=== PATIENT | female | born 1945 | race Two or more races ===

== ENCOUNTER 2020-05-09 17:19 | Emergency (ER) | payer MEDICARE ==
[~2020-05-09] VITALS: Ht 157.5 cm; Wt 72.6 kg
[2020-05-09 21:10] VITALS: BP 142/56
[2020-05-09] MEDS ORDERED: LIDOCAINE 1% HCL (LOCAL ANESTH.) INJ 20ML MDV ONE (21:15)
[2020-05-09] MEDS ORDERED: LIDOCAINE 1% HCL (LOCAL ANESTH.) INJ 20ML MDV ID ONE (21:15)
== END 2020-05-09 21:43 | disposition home or self-care (01) ==
LOC: ER 17:19
DX: N61.1 Abscess of the breast and nipple (principal); I10 Essential (primary) hypertension; Z88.0 Allergy status to penicillin
CPT/HCPCS: 10060; 99283; J2001

== ENCOUNTER 2025-02-23 22:32 | Emergency (ER) | payer MEDICARE, BC, OTHER ==
[~2025-02-23] VITALS: Ht 165.1 cm; Wt 76.3 kg
--- NOTE | 2025-02-23 23:25 | ECG ---
[facility] Test Date: 2025-02-23 Test Time: 23:23:48 Pat Name: MARITZA HEATH Department: ED Room: Gender: F Director Of Claims: sergo : 1945 Requested By: EMERGENCY EMERGENCY Order Number: [id number] Reading MD: Néstor Devlin Measurements Intervals [place] Rate: 63 P: 39 [place]: 188 QRS: -7 QRSD: 93 T: -22 QT: 449 QTc: 460 Interpretive Statements Sinus rhythm Consider anterior infarct Nonspecific T abnormalities, inferior leads Electronically Signed On 02-24-2025 18:25:45 PDT by Néstor Devlin Please click the below link to view image of tracing.
[2025-02-23 23:46] LABS: Potassium 4.2 mmol/L (3.5-5.1); Sodium 138 mmol/L (136-145)
[2025-02-23 23:47] LABS: Anion Gap 9 (5-15); Carbon Dioxide 21 mmol/L (20-31)
[2025-02-23 23:49] LABS: Hematocrit 28.9 % (36.0-46.0); Hemoglobin 10.1 g/dL (12.2-16.2); Mean Corpuscular Hemoglobin 31.5 pg (28.0-32.0); Mean Corpuscular Volume 90.5 fL (80.0-100.0); Nucleated Red Blood Cells % 0.8 %
[2025-02-23 23:52] LABS: Glucose 98 mg/dL (74-106)
[2025-02-23 23:53] LABS: BUN/Creatinine Ratio 32.0 (10.0-20.0)
[2025-02-23 23:56] LABS: Blood Urea Nitrogen 24 mg/dL (9-23); Calcium 8.2 mg/dL (8.7-10.4); Chloride 108 mmol/L (98-107)
--- NOTE | 2025-02-24 00:17 | ECG ---
[facility] Test Date: 2025-02-23 Test Time: 22:38:15 Pat Name: MARITZA HEATH Department: ED Room: Gender: F Animal Nutrition Consultant: HAYDER : 1945 Requested By: EMERGENCY EMERGENCY Order Number: [id number] Reading MD: Néstor Devlin Measurements Intervals [place] Rate: 68 P: 47 [place]: 182 QRS: -15 QRSD: 99 T: 48 QT: 431 QTc: 459 Interpretive Statements Sinus rhythm Borderline left axis deviation Nonspecific repol abnormality, lateral leads Electronically Signed On 02-24-2025 18:25:39 PDT by Néstor Devlin Please click the below link to view image of tracing.
--- NOTE | 2025-02-24 01:08 | ED.PDOC ---
History of Present Illness Chief Complaint: Chest Pain Primary Care Provider: ARMAND Allergies: Coded Allergies: Penicillins (Verified Allergy, Severe, 05/09/20) Mode of Arrival: Ambulatory Past Medical History PAST MEDICAL HISTORY: HTN Surgical History: Denies all surgeries SUPERINTENDENT OPERATING History: No Pertinent SUPERINTENDENT OPERATING History Family History Family History: Reviewed,noncontributory to illness, No family hx of Cancer, No family hx of DM, No family hx of Heart servando, No family hx of HTN, No family hx ofKidney servando, No family hx of Liver servando, No family hx of Lung servando, No family hx of Stroke Social History Smoker: Non-Smoker Alcohol: Denies ETOH Use Drugs: Denies Drug Use Lives In: Home X-Ray, Labs, Meds, VS Vital Signs Date Time Temp Pulse Resp B/P (MAP) Pulse Ox O2 Delivery O2 Flow Rate FiO2 02/24/25 03:01 97.8 66 14 90/60 (70) 95 97.8 02/24/25 01:32 68 02/23/25 23:23 63 02/23/25 22:51 98.3 68 16 146/51 95 98.3 02/23/25 22:38 68 Lab Test 02/24/25 02:30 02/24/25 01:30 02/23/25 22:43 Range/Units Troponin I High Sensitivity 13 14 11 </=34 ng/L White Blood Count 4.5 4.4-10.8 10^3/uL Red Blood Count 3.20 L 4.0-5.20 10^6/uL Hemoglobin 10.1 L 12.2-16.2 g/dL Hematocrit 28.9 L 36.0-46.0 % Mean Corpuscular Volume 90.5 80.0-100.0 fL Mean Corpuscular Hemoglobin 31.5 28.0-32.0 pg Mean Corpuscular Hemoglobin Concent 34.8 32.0-36.0 g/dL Red Cell Distribution Width 14.0 11.8-14.3 % Platelet Count 69 L 140-450 10^3/uL Mean Platelet Volume 9.4 6.9-10.8 fL Neutrophils (%) (Auto) 55.6 37.0-80.0 % Lymphocytes (%) (Auto) 27.6 10.0-50.0 % Monocytes (%) (Auto) 15.3 H 0.0-12.0 % Eosinophils (%) (Auto) 1.3 0.0-7.0 % Basophils (%) (Auto) 0.2 0.0-2.0 % Neutrophils # (Auto) 2.5 1.6-8.6 10 ^3/uL Lymphocytes # (Auto) 1.2 0.4-5.4 10 ^3/uL Monocytes # (Auto) 0.7 0-1.3 10 ^3/uL Eosinophils # (Auto) 0.1 0-0.8 10 ^3/uL Basophils # (Auto) 0 0-0.2 10 ^3/uL Nucleated Red Blood Cells 0.8 % Sodium Level 138 136-145 mmol/L Potassium Level 4.2 3.5-5.1 mmol/L Chloride Level 108 H 98-107 mmol/L Carbon Dioxide Level 21 20-31 mmol/L Anion Gap 9 5-15 Blood Urea Nitrogen 24 H 9-23 mg/dL Creatinine 0.75 0.550-1.02 mg/dL Glomerular Filtration Rate Calc 80 >90 mL/min BUN/Creatinine Ratio 32.0 H 10.0-20.0 Serum Glucose 98 74-106 mg/dL Calcium Level 8.2 L 8.7-10.4 mg/dL B-Type Natriuretic Peptide 268.03 0-100 pg/mL SEPSIS Sepsis Screen Date sepsis recognized/suspect: Feb 23, 2025 Time Sepsis recognized/suspect: 2257 Recent Procedure: Yes (CHEMO THERAPY INFUSION 02/19/25) On Antibiotic Therapy: No Respiratory Rate >20: No Heart Rate >90: No Temp<36 C (96.8 F) or >38.3 C: No SBP <90 or MAP <65 mmHG: No New Acute Mental Status Change: No Is the patient on CPAP, BIPAP,: No Physician Orders Urinalysis (02/23/25 22:42) Electrocardigram (02/24/25 01:43) Chest Xray 1 View (02/23/25 23:25) Vital Signs Q1HR (02/23/25 23:25) Troponin-I Hs (02/24/25 04:20) Vital Signs Date Time Temp Pulse Resp B/P (MAP) Pulse Ox O2 Delivery O2 Flow Rate FiO2 02/24/25 03:01 97.8 66 14 90/60 (70) 95 97.8 02/24/25 01:32 68 02/23/25 23:23 63 02/23/25 22:51 98.3 68 16 146/51 95 98.3 02/23/25 22:38 68 Laboratory Tests Test 02/23/25 22:43 White Blood Count 4.5 10^3/uL (4.4-10.8) I personally scribed for CAROL CHOUDHARY MD ([email or web address]) on 02/24/25 at 01:08. Electronically submitted by Claudio Grijalva ([email or web address]). I personally scribed for CAROL CHOUDHARY MD ([email or web address]) on 02/24/25 at 03:38. Electronically submitted by Claudio Grijalva ([email or web address]). CAROL CHOUDHARY MD Feb 24, 2025 01:08
--- NOTE | 2025-02-24 01:32 | ED.PDOC ---
History of Present Illness HPI Comments 79 y/o Emirati speaking F presents with daughter for c/c hypertension and chest pain. Per daughter, patient has been having symptoms, intermittently, since her last chemotherapy session for a liver tumors on February 21, 2025. Chest pain episodes are reported to have only occurred at the day of receiving chemotherapy and this evening, unprovoked at 1635. Systolic pressures reports being within the 200s range via home blood pressure monitoring devices. Patient states on compliancy with medication a new medication she was started on for her high bl ood pressure recently. Last or intake of high blood pressure medication was, this evening, prior to arrival. Since taking said medication patient reports on pain slightly improving. Only significant history of hypertension and vitiligo. Patient denies having any shortness of breath, does not, or further associated symptoms. REVIEW OF SYSTEMS: General: No fever, no chills, or fatigue HEENT: No sore throat, no earache, no congestion, no neck pain. Cardiac: Chest pain. Hypertension. No palpitations. Lungs: No shortness of breath, no cough. GI: No nausea, no vomiting, no diarrhea, no constipation, no abdominal pain : No dysuria, frequency, or urgency. No hematuria. Musculoskeletal: No joint pain , no joint swelling, no extremity edema. Skin: No rash, no itching. Neuro: No headache, no dizziness, no weakness PHYSICAL EXAM: General: Awake, alert and oriented. No acute distress. Skin: Skin in warm, dry and intact. Appropriate color for ethnicity with noted vitiligo changes. HEENT: The head is normocephalic and atraumatic. Conjunctivae are clear without exudates or hemorrhage. Sclera is non-icteric. EOM are intact. No signs of nystagmus. Eyelids are normal in appearance without swelling or lesions. Oral mucosa is pink and moist Neck: The neck is supple with normal range of motion. No JVD. Cardiac: Heart rate and rhythm are normal. No murmurs, gallops, or rubs are auscultated. Respiratory: No signs of respiratory distress. Lung sounds are clear in all lobes bilaterally without rales, rhonchi, or wheezes. Extremities: Mild bilateral ankle edema which is chronic Neurological: The patient is awake, alert and oriented to person, place, and time with normal speech. Speech is clear. There is no facial asymmetry. Chief Complaint: Chest Pain Time Seen by MD: 22:30 Primary Care Provider: ARMAND Marcelo Notes: Nurses Notes, Medications, Allergies Allergies: Coded Allergies: Penicillins (Verified Allergy, Severe, 05/09/20) Information Source: Patient, Relative (Child) Mode of Arrival: Ambulatory Severity: Moderate Timing: Hours Duration: Since onset Prehospital treatment: Other (See HPI) Past Medical History PAST MEDICAL HISTORY: Cancer (Liver tumors, on chemotherapy), HTN Surgical History: Denies all surgeries RESIDENTIAL WORKER History: No Pertinent RESIDENTIAL WORKER History Family History Family History: Reviewed,noncontributory to illness, No family hx of Cancer, No family hx of DM, No family hx of Heart servando, No family hx of HTN, No family hx ofKidney servando, No family hx of Liver servando, No family hx of Lung servando, No family hx of Stroke Social History Smoker: Non-Smoker Alcohol: Denies ETOH Use Drugs: Denies Drug Use Lives In: Home Was a procedure done? Was a procedure done?: No EKG EKG #1: Pulse Rate (adult): 63 [place]: Normal Cardiac Rhythm: NSR Block: None Hypertrophy: None ST: Normal Comments No STEMI EKG #2: Pulse Rate (adult): 68 [place]: Normal Cardiac Rhythm: NSR Block: None Hypertrophy: None ST: Normal Comments No STEMI Differential Dx Considerations may include: Differential diagnoses considered include acute ischemic coronary syndrome, aortic dissection, cardiac tamponade, mediastinitis, pulmonary embolus, pneumothorax, tension pneumothorax, esophageal rupture, coronary artery vasospasm, myocarditis, pericarditis, pneumonia, pulmonary edema, esophageal tear, pancreatitis, aortic stenosis, dilated cardiomyopathy, hypertrophic cardiomyopathy, mitral valve prolapse, malignancy, pleuritis, pneumomediastinum, primary pulmonary hypertension, cholecystitis, esophageal spasm, esophagus, gas tritis, GERD, peptic ulcer disease, costochondritis, fibromyalgia, rib fracture, herpes zoster, radicular syndromes, thoracic outlet syndrome, somatization. X-Ray, Labs, Meds, VS Vital Signs Date Time Temp Pulse Resp B/P (MAP) Pulse Ox O2 Delivery O2 Flow Rate FiO2 02/24/25 03:01 97.8 66 14 90/60 (70) 95 97.8 02/24/25 01:32 68 02/23/25 23:23 63 02/23/25 22:51 98.3 68 16 146/51 95 98.3 02/23/25 22:38 68 Lab Test 02/24/25 03:36 02/24/25 02:30 02/24/25 01:30 02/23/25 22:43 Range/Units Urine Color Light-yellow Yellow Urine Clarity Turbid H Clear Urine pH 6.0 5.0-9.0 Urine Specific [place] 1.010 1.001-1.035 Urine Protein 1+ H Negative Urine Ketones Negative Negative Urine Blood 1+ H Negative /uL Urine Nitrite Negative Negative Urine Bilirubin Negative Negative Urine Urobilinogen Normal Negative mg/dL Urine Leukocyte Esterase 3+ Negative /uL Urine Glucose Normal Normal mg/dL Troponin I High Sensitivity 13 14 11 </=34 ng/L White Blood Count 4.5 4.4-10.8 10^3/uL Red Blood Count 3.20 L 4.0-5.20 10^6/uL Hemoglobin 10.1 L 12.2-16.2 g/dL Hematocrit 28.9 L 36.0-46.0 % Mean Corpuscular Volume 90.5 80.0-100.0 fL Mean Corpuscular Hemoglobin 31.5 28.0-32.0 pg Mean Corpuscular Hemoglobin Concent 34.8 32.0-36.0 g/dL Red Cell Distribution Width 14.0 11.8-14.3 % Platelet Count 69 L 140-450 10^3/uL Mean Platelet Volume 9.4 6.9-10.8 fL Neutrophils (%) (Auto) 55.6 37.0-80.0 % Lymphocytes (%) (Auto) 27.6 10.0-50.0 % Monocytes (%) (Auto) 15.3 H 0.0-12.0 % Eosinophils (%) (Auto) 1.3 0.0-7.0 % Basophils (%) (Auto) 0.2 0.0-2.0 % Neutrophils # (Auto) 2.5 1.6-8.6 10 ^3/uL Lymphocytes # (Auto) 1.2 0.4-5.4 10 ^3/uL Monocytes # (Auto) 0.7 0-1.3 10 ^3/uL Eosinophils # (Auto) 0.1 0-0.8 10 ^3/uL Basophils # (Auto) 0 0-0.2 10 ^3/uL Nucleated Red Blood Cells 0.8 % Sodium Level 138 136-145 mmol/L Potassium Level 4.2 3.5-5.1 mmol/L Chloride Level 108 H 98-107 mmol/L Carbon Dioxide Level 21 20-31 mmol/L Anion Gap 9 5-15 Blood Urea Nitrogen 24 H 9-23 mg/dL Creatinine 0.75 0.550-1.02 mg/dL Glomerular Filtration Rate Calc 80 >90 mL/min BUN/Creatinine Ratio 32.0 H 10.0-20.0 Serum Glucose 98 74-106 mg/dL Calcium Level 8.2 L 8.7-10.4 mg/dL B-Type Natriuretic Peptide 268.03 0-100 pg/mL [place] [address] Ph: [phone] DIAGNOSTIC IMAGING Diagnostic Imaging Report : [id number] Signed PATIENT: MARITZA HEATH ACCT: [id number] UNIT: [id number] : 1945 LOC: ER ROOM / BED: / AGE / SEX: 79 / F ADM STATUS: REG ER SERVICE 24 ORDERING PHYSICIAN: CAROL CHOUDHARY MD PROCEDURE(s): CXR1 - CHEST XRAY 1 VIEW REASON: cp ORDER NUMBER(s): [id number], ACCESSION NUMBER(s): [id number] CHEST RADIOGRAPH Indication: cp Technique: Single frontal view of the chest was obtained COMPARISON: None FINDINGS: Lines and Tubes: None Lungs: Mild diffuse increased prominence of the pulmonary vasculature. No evidence of focal consolidation. Pleura: No effusion. No pneumothorax. Cardiomediastinal contours: Cardiomegaly Bones: Unremarkable IMPRESSION: 1. Cardiomegaly and mild diffuse increased prominence of the pulmonary vasculature. ATED BY: PERRY COLIN MD DICTATED DATE/TIME: 02/24/25401 SIGNED BY: PERRY COLIN MD SIGNED DATE/TIME: 02/24/25401 CC: Time of 1ST Reevaluation: 23:00 Reevaluation 1ST: Unchanged Patient Education/Counseling: Need For Follow Up Family Education/Counseling: Need For Follow Up SEPSIS Sepsis Screen Date sepsis recognized/suspect: Feb 23, 2025 Time Sepsis recognized/suspect: 2257 Recent Procedure: Yes (CHEMO THERAPY INFUSION 02/19/25) On Antibiotic Therapy: No Respiratory Rate >20: No Heart Rate >90: No Temp<36 C (96.8 F) or >38.3 C: No SBP <90 or MAP <65 mmHG: No New Acute Mental Status Change: No Is the patient on CPAP, BIPAP,: No Physician Orders Electrocardigram (02/24/25 01:43) Chest Xray 1 View (02/23/25 23:25) Vital Signs Q1HR (02/23/25 23:25) Troponin-I Hs (02/24/25 04:20) Urine Bacterial Culture (02/24/25 04:50) Vital Signs Date Time Temp Pulse Resp B/P (MAP) Pulse Ox O2 Delivery O2 Flow Rate FiO2 02/24/25 03:01 97.8 66 14 90/60 (70) 95 97.8 02/24/25 01:32 68 02/23/25 23:23 63 02/23/25 22:51 98.3 68 16 146/51 95 98.3 02/23/25 22:38 68 Laboratory Tests Test 02/23/25 22:43 White Blood Count 4.5 10^3/uL (4.4-10.8) Departure 1 Departure Time of Disposition: 03:37 Impression: Primary Impression: Chest pain Disposition: HOME / SELF CARE / HOMELESS Condition: Stable Additional Instructions: INSTRUCCIONES DE YANET DE Urgencias Instrucciones: Annmarie atentamente todas las instrucciones proporcionadas en hilda paquete. Aunque le hayan dado el yanet del Departamento de Emergencias, esto no significa que tenga un "certificado de buena angelina". Hoy no se baca realizado ningn diagnstico definitivo para jenna sntomas. Es posible que ests en proceso de desarrollar leonardo enfermedad grave. Es por eso que debe regresar al servicio de urgencias sin falta si presenta algn sntoma nuevo o que empeora (especialmente si jenna sntomas incluyen dolor en el pecho, dificultad para respirar, dolor abdominal, fiebre, dolor de monster, confusin, dificultad para ez o caminar). Tambin es muy importante que consulte a un mdico de atencin primaria dentro de los prximos 3 a 5 austin para realizar un seguimiento. Si no puede conseguir leonardo cornel, regrese al servicio de urgencias para leonardo nueva evaluacin. Dolor en el pecho: Instrucciones de cuidado Tabla de contenido Descripcin general Charger puedes cuidarte en casa? Cundo debes pedir ayuda? Crditos Descripcin general Hay muchas cosas que pueden causar dolor en el pecho. Algunas no son graves y mejoran por s solas en unos austin. Sin embargo, algunos tipos de dolor en el pecho requieren ms pruebas y tratamiento. Es posible que rowe mdico le haya recomendado leonardo visita de seguimiento en los prximos austin. Si no mejora, es posible que necesite ms pruebas o tratamiento. Aunque rowe mdico le haya dado de yanet, debe estar atento a cualquier problema. El mdico le realiz leonardo revisin exhaustiva, cass a veces pueden surgir problemas ms adelante. Si presenta sntomas nuevos o si estos no mejoran, busque atencin mdica de inmediato. Si tiene un dolor o presin en el pecho peor o diferente que dura ms de 5 minutos o si se desmay (perdi el conocimiento), llame al 911 o busque otra ayuda de emergencia de inmediato. Leonardo visita mdica es solo un paso en rowe tratamiento. Incluso si se siente mejor, debe seguir las recomendaciones de rowe mdico, bj asistir a todas las citas de seguimiento sugeridas y charan los medicamentos exactamente bj se le indique. [place] le ayudar a recuperarse y a prevenir problemas futuros. Charger puedes cuidarte en casa? Descansa hasta que te sientas mejor. [place] rowe medicamento exactamente bj se lo recetaron. Llame a rowe mdico si giuseppe que tiene algn problema con rowe medicamento. No conduzca despus de charan un analgsico recetado. Cundo debes pedir ayuda? Llame al si: Te desmayaste (perdiste el conocimiento). Tienes dificultad grave para respirar. Tiene sntomas de un ataque cardaco. Estos pueden incluir: Dolor o presin en el pecho, o leonardo sensacin extraa en el pecho. Transpiracin. Dificultad para respirar. Nuseas o vmitos. Dolor, presin o leonardo sensacin extraa en la espalda, el adrian, la mandbula o la parte superior del abdomen o en malena o ambos hombros o brazos. Mareo o debilidad repentina. Un ritmo cardaco rpido o irregular. Despus de llamar al , el operador podra indicarle que mastique leonardo aspirina para adultos o de 2 a 4 aspirinas de dosis baja. Espere la ambulancia. No intente conducir. Llame a rowe mdico ahora o busque atencin mdica inmediata si: Tienes alguna dificultad para respirar. Tiene un dolor en el pecho nuevo o diferente. Se siente mareado o aturdido o bj si se pudiera desmayar. Preste atencin de cerca a los cambios en rowe angelina y asegrese de comunicarse con rowe mdico si no mejora bj se esperaba. Crditos para el dolor de pecho: Instrucciones de cuidado Actualizado al: 2023 Autor: Personal de [address] Junta de revisin clnica Toda la educacin de [address] es revisada por un equipo que incluye mdicos, enfermeras, profesionales avanzados, dietistas registrados y otros profesionales de la angelina. Comments MDM: 81-year-old female with chest pain. EKG negative for signs of ischemia. High sensitivity troponin negative. CXR shows no acute process. Presentation not suggestive of acute coronary syndrome, pulmonary embolism or aortic dissection. Patient symptoms resolved during the ED observation. Patient has not been hypoxic, in respiratory distress or dyspneic during the ED observation. Patient able to ambulate without difficulty. Patient felt stable for discharge to follow up with PCP promptly. Patient advised to return to the ED with any new, worsening or concerning symptoms or inability to follow up with PCP. - I reviewed the following notes from the pt's past medical encounters: N/A The following tests were ordered, and results were reviewed by me: (See diagnostic results section) The following test were independently interpreted by me: EKG Additional information was gathered from interviewing the following independent historians: Patient's daughter at bedside I reviewed and agreed with the following test results read by other providers: Chest x-ray I discussed treatments and results with patient Decision regarding hospitalization or escalation of hospital level of care: Risks and benefits of admission for further treatment of patient's condition was considered however due to patient's stable condition patient will be discharged to follow up closely or return to care for worsening of condition or inability to follow up. Critical Care Note Critical Care Time?: No Stability Stability form required: No Heart Score Heart Score: Heart Score Response (Comments) Value History Slightly Suspicious 0 EKG Normal 0 Age >65 2 Risk Factors 1 or 2 risk factors 1 Troponin Normal limit 0 Total 3 I personally scribed for CAROL CHOUDHARY MD ([email or web address]) on 02/24/25 at 01:32. Electronically submitted by Claudio Grijalva ([email or web address]). I personally scribed for CAROL CHOUDHARY MD ([email or web address]) on 02/24/25 at 03:50. Electronically submitted by Claudio Grijalva ([email or web address]). I personally scribed for CAROL CHOUDHARY MD ([email or web address]) on 02/24/25 at 04:34. Electronically submitted by Claudio Grijalva ([email or web address]). CAROL CHOUDHARY MD Feb 24, 2025 01:32
[2025-02-24 03:01] VITALS: BP 90/60; PULSE 66; RESP 14; TEMP 97.8; O2SAT 95
--- NOTE | 2025-02-24 04:05 | DVH ---
CHEST RADIOGRAPH Indication: cp Technique: Single frontal view of the chest was obtained COMPARISON: None FINDINGS: Lines and Tubes: None Lungs: Mild diffuse increased prominence of the pulmonary vasculature. No evidence of focal consolida tion. Pleura: No effusion. No pneumothorax. Cardiomediastinal contours: Cardiomegaly Bones: Unremarkable IMPRESSION: 1. Cardiomegaly and mild diffuse increased prominence of the pulmonary vasculature.
[2025-02-24 04:44] LABS: Urine Protein, UAD 1+ (Negative)
--- NOTE | 2025-02-25 08:02 | ECG ---
[facility] Test Date: 2025-02-24 Test Time: 01:25:44 Pat Name: MARITAZ HEATH Department: [facility] ED Patient ID: [facility]-[id number] Room: Gender: F Sleeve Wheel Maker: sergo : 1945 Requested By: EMERGENCY EMERGENCY Order Number: [id number] Reading MD: Measurements Intervals [place] Rate: 62 P: 42 [place]: 190 QRS: -2 QRSD: 101 T: -19 QT: 452 QTc: 459 Interpretive Statements Sinus rhythm Nonspecific T abnormalities, inferior leads Please click the below link to view image of tracing.
== END 2025-02-24 06:42 | disposition home or self-care (01) ==
LOC: ER 22:32
DX: R07.89 Other chest pain (principal); I10 Essential (primary) hypertension; Z88.0 Allergy status to penicillin
CPT/HCPCS: 36415; 71045; 80048; 81003; 83880; 84484; 85025; 87086; 93005

== ENCOUNTER 2025-04-16 08:40 | Inpatient (IN) | payer MEDICARE, BC, OTHER ==
[~2025-04-16] VITALS: Ht 157.5 cm; Wt 72.4 kg
--- NOTE | 2025-04-16 09:26 | ED.PDOC ---
General HPI Comments HPI: This is a 79 year old female BIB daughter presenting to the ED with chief complaint of dysuria. Patient reports that she has been experiencing dysuria for the past 2 days with associated black stools with red streaks of blood since yesterday. Daughter relays patient has history of liver cancer with tumors noted to the stomach and lymph nodes, last chemotherapy session being 2 weeks ago. Daughter states patient is not on blood thinners. Patient denies any N/V/D, dizziness, fever, chills, or abdominal pain. Patient is oxygen dependent because chemotherapy causes her to have fluid retention. She is on Lasix. Initial Vitals BP: 146/63 HR: 93 Temp: 98F Past Medical History: HTN, Liver cancer Past Surgical History: Denies Social History: Denies ETOH, smoking, and drug use. Medications: Chemotherapy, Lasix, Udenyca, Lidocaine Allergies: Penicillins IVANA: Burning with urination for the last two days. Liver cancer with Mets. On chemotherapy. Tarry black stool with blood. No pain, on oxygen, on Lasix. HPI: Poor Historian. REVIEW OF SYSTEMS: CONSTITUTIONAL: Denies acute: fever, diaphoresis, chills, HEAD: Denies acute: headache, photophobia Eyes: Denies acute: Double vision, vision loss, eye pain, eye discharge. EARS: Denies acute: tinnitus, hearing loss, ear discharge, ear pain, THROAT: Denies acute: sore throat, swelling, difficulty swallowing , pain with swallowing, change in voice. NECK: Denies acute: neck pain, neck swelling, stiff neck. HEART: Denies acute : chest pain, palpitations, LUNGS: Denies acute: SOB, wheezing, cough, hemoptysis ABDOMEN: Denies acute: abdominal pain, Nausea, Vomiting, diarrhea, , hematemesis, SKIN: Denies acute: rash, redness, lesions, itchiness. EXTREMITIES: Denies acute: calf pain, numbness, tingling, weakness, denies pain in extremity. Denies acute: Low back pain. Neuro: Denies acute: focal neurological deficit, motor or sensory focal neurological deficit, tremors, seizure like activity, confusion, dizziness, change in mental status, loss of bowel or bladder function, cauda equina like symptoms. : Denies acute: , hematuria, flank pain, increase in urinary frequency. PSYCH: Denies acute: hallucination, suicidal ideation, homicidal ideation. FEMALE: Denies acute: abnormal vaginal bleeding, foul odor, unusual discharge. PHYSICAL EXAM: General: ----mild----acute distress, awake and alert. Head: normocephalic, atraumatic. Neck: supple, trachea is midline, no swelling. Throat: Normal phonation. Eyes:, no erythema, no purulent discharge, no proptosis, no icterus. Heart: regular rate, regular rhythm, no significant murmur appreciated. Lungs: no apparent respiratory distress, Able to speak in full sentences. No wheezing, no rhonchi, no crackles. No stridors Clear to auscultation bilaterally. Abdomen: non tender to palpation, non distended, soft, no guarding, no rebound, + bowel sounds. Neuro: Awake, Alert, oriented to name, self, situation, follows commands GCS=15. Speech is normal. Skin: no petechia, no purpura, no cyanosis, non-pale, not jaundice. Lower extremities: --trace- Pitting edema no deformity, no focal swelling, no calf TTP. Makes eye contact. moves all four extremities. Face: no apparent facial droop. Ambulating in the ED with a walker. ED COURSE: DISCLAIMER: This medical document was created using an electronic medical record system with voice recognition software and computerized dictation system. Although this document has been carefully reviewed, there might still be some phonetic and typographical errors. Occasional wrong-word or "sound-alike" substitutions may have occurred due to the inherent limitations of voice recognition software. These areas are purely typographical due to imperfections of the software programs and do not reflect any compromise in the patient's medical care. Please read the chart carefully and recognize, using context, where these substitutions have occurred. Chief Complaint: Urinary Time Seen by MD: 09:07 Primary Care Provider: ARMAND Reviewed notes: Medications, Allergies Allergies: Coded Allergies: Penicillins (Verified Allergy, Severe, 05/09/20) Home Meds Reported Medications Rosuvastatin Calcium (Rosuvastatin Calcium) 10 Mg Tab, 10 MG PO DAILY, TAB 04/17/25 Pantoprazole Sodium Sesquihydr (Protonix) 40 Mg Tab, 40 MG PO DAILY, #30 TAB 04/17/25 Metoprolol Tartrate (Lopressor) 50 Mg Tab, 1 TAB PO DAILY, #60 TAB 5 Refills 04/17/25 Albuterol Sulfate (VENTOLIN MDI) 90 Mcg Ih, 90 MCG IN, INH 04/17/25 Nifedipine (Nifedipine Er) 90 Mg Tab, 1 TAB PO DAILY, #30 TAB 5 Refills 04/17/25 Hydralazine Hcl (Hydralazine Hcl) 50 Mg Tab, 1 TAB PO TID, #90 TAB 5 Refills 04/17/25 Information Source: Patient Mode of Arrival: Ambulatory Was a procedure done? Was a procedure done?: No EKG EKG : Pulse Rate (adult): 73 Cardiac Rhythm: NSR Differential Diagnosis Kidney stone (Female): N/A Urinary Problem (Female): PID, Pyelonephritis, Urinary retention, Urolithiasis, UTI, Other (As far as rectal bleeding: Diverticulitis, colitis, fistula, neoplasm, hemorrhoids, anal fissures, constipation, Crohn's disease, ulcerative colitis) X-Ray, Labs, Meds, VS Vital Signs Date Time Temp Pulse Resp B/P (MAP) Pulse Ox O2 Delivery O2 Flow Rate FiO2 04/16/25 14:18 97.1 63 18 132/52 (78) 98 97.1 04/16/25 09:27 73 04/16/25 09:02 73 04/16/25 08:51 98.0 93 74 146/63 16 98.0 Lab Test 04/16/25 14:49 04/16/25 12:56 04/16/25 11:01 Range/Units Urine Color Colorless Yellow Urine Clarity Turbid H Clear Urine pH 6.0 5.0-9.0 Urine Specific [place] 1.010 1.001-1.035 Urine Protein 2+ H Negative Urine Ketones Negative Negative Urine Blood 1+ H Negative /uL Urine Nitrite Negative Negative Urine Bilirubin Negative Negative Urine Urobilinogen Normal Negative mg/dL Urine Leukocyte Esterase 3+ Negative /uL Urine RBC 3 0 - 4 /hpf Urine WBC Clumps Present None Seen /hpf Urine Microscopic WBC 184 H 0-5 /HPF Urine Squamous Epithelial Cells Few <5 /hpf Urine Bacteria Mod H None Seen /hpf Urine Mucus Few None Seen Urine Osmolality 248 mOsm/kg Urine Creatinine 87.50 30.0-125.0 mg/dL Urine Protein/Creatinine Ratio 1.84 Urine Sodium 14 L 40-220 mmol/L Urine Glucose Normal Normal mg/dL Urine Total Protein 161.0 H 1-14 mg/dL Prothrombin Time 11.7 9.3-11.8 sec Prothrombin Time INR 1.12 0.9-1.15 Activated Partial Thromboplast Time 24.5 24.5-34.5 SEC Iron Level 132 50-170 ug/dL Total Iron Binding Capacity 319 250-425 ug/dL Percent Iron Saturation 41.4 15-50 % Ferritin 353.9 H 10-291 ng/mL White Blood Count 21.6 H 4.4-10.8 10^3/uL Red Blood Count 2.89 L 4.0-5.20 10^6/uL Hemoglobin 9.4 L 12.2-16.2 g/dL Hematocrit 27.9 L 36.0-46.0 % Mean Corpuscular Volume 96.7 80.0-100.0 fL Mean Corpuscular Hemoglobin 32.4 H 28.0-32.0 pg Mean Corpuscular Hemoglobin Concent 33.5 32.0-36.0 g/dL Red Cell Distribution Width 20.5 H 11.8-14.3 % Platelet Count 73 L 140-450 10^3/uL Mean Platelet Volume 9.7 6.9-10.8 fL Neutrophils (%) (Auto) 37.0-80.0 % Lymphocytes (%) (Auto) 10.0-50.0 % Monocytes (%) (Auto) 0.0-12.0 % Basophils (%) (Auto) 0.0-2.0 % Neutrophils # (Auto) 1.6-8.6 10 ^3/uL Lymphocytes # (Auto) 0.4-5.4 10 ^3/uL Monocytes # (Auto) 0-1.3 10 ^3/uL Differential Total Cells Counted 100.0 100 Neutrophils % (Manual) 77 37.0-80.0 Band Neutrophils % (Manual) 6 Lymphocytes % (Manual) 6 L 10.0-50.0 Monocytes % (Manual) 10 0-12 Eosinophils % (Manual) 0 0-7 Basophils % (Manual) 0 0.0-2.0 Metamyelocytes % (manual) 0 Myelocytes % (Manual) 1 Promyelocytes % (Manual) 0 Blast Cells % (Manual) 0 Reactive Lymphocytes 0 Smudge Cells 2 /100 WBC Platelet Estimate Decreased Large Platelets Few Anisocytosis (manual) Slight Schistocytes Few Sodium Level 132 L 136-145 mmol/L Potassium Level 4.3 3.5-5.1 mmol/L Chloride Level 103 98-107 mmol/L Carbon Dioxide Level 21 20-31 mmol/L Anion Gap 8 5-15 Blood Urea Nitrogen 40 H 9-23 mg/dL Creatinine 1.73 H 0.550-1.02 mg/dL Glomerular Filtration Rate Calc 29 >90 mL/min BUN/Creatinine Ratio 23.1 H 10.0-20.0 Serum Glucose 119 H 74-106 mg/dL Lactic Acid Level 1.2 0.4-2.0 mmol/L Calcium Level 8.8 8.7-10.4 mg/dL Total Bilirubin 0.8 0.2-1.0 mg/dL Aspartate Amino Transferase (AST) 69 H 13-40 U/L Alanine Aminotransferase (ALT) 36 7-40 U/L Alkaline Phosphatase 179 H 46-116 U/L Troponin I High Sensitivity 11 </=34 ng/L B-Type Natriuretic Peptide 194.57 0-100 pg/mL Total Protein 6.9 5.7-8.2 g/dL Albumin 3.5 3.2-4.8 g/dL Microbiology Date/Time Source Procedure Growth Status 04/16/25 14:49 Voided Urine Urine Culture - Final Escherichia coli Escherichia coli#2 Complete 04/16/25 12:56 Blood Blood Culture - Preliminary NO GROWTH AFTER 24 HOURS OF INCUBATION. Resulted 04/16/25 12:40 Blood Blood Culture - Preliminary NO GROWTH AFTER 24 HOURS OF INCUBATION. Resulted Time of 1ST Reevaluation: 10:06 Reevaluation 1ST: Unchanged Patient Education/Counseling: Diagnosis, Treatment Family Education/Counseling: No Family Present Comments MDM: patient presented with the above HPI.---urinary symptoms and rectal bleeding---workup was initiated. patient was found with the above mentioned nic gnosis. the following medications were ordered: please refer to order lists of meds and tests obtained by myself Dr. Moran. Patient ED course and VS have been stabilized. Patient has been reassessed in the ED and remained in a stable condition. Pertinent incidental findings were discussed with the patient and/or family. Patient/family voices understanding and is agreeable with plan. Patient has been observed in the ED adequate length of time to insure improvement/stability. Escalation of care considered: Consideration of escalation to observation or admission Patient was found with a UTI and colitis. Antibiotics initiated. Patient was ADMITTED to the medicine team for further evaluation and treatment of their presentation. All the reports of any imaging studies that were ordered by myself were reviewed by myself. Departure 1 Departure Time of Disposition: 12:12 Impression: Primary Impression: Dysuria Additional Impressions: Rectal bleed Leukocytosis Anemia Colitis Disposition: ADMITTED INPATIENT Admit to: Tele Condition: Guarded Discharged With: Self, Relative Critical Care Note Critical Care Time?: Yes (35 min-critical care time only) I personally scribed for TERE MORAN DO ([email or web address]) on 04/16/25 at 09:26. Electronically submitted by Patrick Morataya ([email or web address]). I personally scribed for TERE MORAN DO ([email or web address]) on 04/16/25 at 09:27. Electronically submitted by Patrick Morataya ([email or web address]). I personally scribed for TERE MORAN DO ([email or web address]) on 04/16/25 at 17:33. Electronically submitted by Patrick Morataya ([email or web address]). TERE MORAN DO Apr 16, 2025 09:26
[2025-04-16 11:30] LABS: Hematocrit 27.9 % (36.0-46.0); Hemoglobin 9.4 g/dL (12.2-16.2); Mean Corpuscular Hemoglobin 32.4 pg (28.0-32.0); Mean Corpuscular Volume 96.7 fL (80.0-100.0)
[2025-04-16 11:46] LABS: Alanine Aminotransferase 36 U/L (7-40); Albumin 3.5 g/dL (3.2-4.8); Anion Gap 8 (5-15); BUN/Creatinine Ratio 23.1 (10.0-20.0); Calcium 8.8 mg/dL (8.7-10.4); Carbon Dioxide 21 mmol/L (20-31); Chloride 103 mmol/L (98-107); Potassium 4.3 mmol/L (3.5-5.1); Total Protein 6.9 g/dL (5.7-8.2)
[2025-04-16 11:47] LABS: Alkaline Phosphatase 179 U/L (46-116); Bilirubin, Total 0.8 mg/dL (0.2-1.0); Blood Urea Nitrogen 40 mg/dL (9-23); Glucose 119 mg/dL (74-106); Sodium 132 mmol/L (136-145)
--- NOTE | 2025-04-16 12:13 | DVH ---
Exam: CT CT AB PEL WO CON-NO ORAL OR IV History: rectal bleed Comparison Study: None Technique: Multidetector spiral CT of the abdomen was performed from lung bases to pubic symphysis. Imaging was performed without IV contrast. Axial, coronal and sagittal multiplanar reformats were ob tained from the axial data set by the technologist. Radiation Dose : 1. Abdomen/Pelvis: CTDIvol 7.99 mGy, DLP 465 mGy*cm. Findings: Evaluation of solid organs is limited due to lack of intravenous contrast use. Lung Bases: No acute or significant lung base finding. Normal heart size. No pleural or pericardial effusion. Liver: The liver is normal in size. No focal lesions. Gallbladder and Biliary Tree: Unremarkable Spleen: Unremarkable Pancreas: The pancreas is grossly normal in appearance. Adrenal Glands: Unremarkable Kidneys: Kidneys are grossly normal without calculi or hydronephrosis. Bladder: Grossly unremarkable for degree of distention. Bowel: The stomach is grossly normal in appearance. Concentric wall thickening throughout the colon m ay reflect mild colitis. The appendix is not visualized; however, no secondary findings of acute bijal endicitis identified. Ascites: Trace pelvic ascites. Lymphadenopathy: No mesenteric, retroperitoneal or periportal lymphadenopathy. Abdominal Wall and Mesentery: Unremarkable. Vasculature: The visualized abdominal aorta is normal in size and caliber. Evaluation of abdominal a nd pelvic vessels is limited due to lack of intravenous contrast. Pelvic Organs: Unremarkable Musculoskeletal: No aggressive focal bony lesions, acute fractures or dislocation. IMPRESSION: 1. Concentric wall thickening throughout the colon may reflect mild colitis. 2. Trace pelvic ascites. Radiation optimization: All CT scans at this facility use at least one of these dose optimization alethea hniques: automated exposure control mA and/or kV adjustment per patient size (includes targeted exam s where dose is matched to clinical indication) or iterative reconstruction.
[2025-04-16] MEDS: levoFLOXacin 500 MG TAB PO ONE (12:20)
[2025-04-16] MEDS: PANTOPRAZOLE 40 MG/10 ML VIAL INJ IV ONE (12:21)
[2025-04-16 12:35] LABS: Anisocytosis Slight; Smudge Cells 2 /100 WBC; Total Cells Counted 100.0 (100)
--- NOTE | 2025-04-16 14:02 | ECG ---
[facility] Test Date: 2025-04-16 Test Time: 09:02:42 Pat Name: MARITZA HEATH Department: Room: 0281T Gender: F Awning Maker: AKASH : [id number] Requested By: TERE BARNARD Order Number: [id number] Reading MD: Néstor Devlin Measurements Intervals [place] Rate: 73 P: 55 KS: 193 QRS: -14 QRSD: 104 T: 41 QT: 421 QTc: 464 Interpretive Statements Sinus rhythm Low voltage, precordial leads Abnormal R-wave progression, late transition Electronically Signed On 04-17-2025 22:16:20 PDT by Néstor Devlin Please click the below link to view image of tracing.
[2025-04-16 15:02] LABS: Urine Protein, UAD 2+ (Negative); Urine WBC Clumps PRESENT /hpf (None Seen)
--- NOTE | 2025-04-16 15:35 | DVHHPRES ---
History of Present Illness Resident Creating Document: JOSE ROSA RESIDENT Reason for Visit: Dysuria History of Present Illness This is an 79-year-old female who was brought in by her daughter to the ED with chief complain of dysuria. PMH: Hypertension, liver cancer (started chemotherapy on January 2025, last chemo was two weeks ago, oncologist is from [facility].) Dyslipidemia, PSH: Denies FH: Noncontributory SH: Denies alcohol, smoking or drug use. Patient states that for the last two days she has been experiencing worsening dysuria, urinary urgency, urinary frequency and foul odor urine. Which has been associated with chills, back pain, mild lower quadrant abdominal pain. She also mentions having stools with red streaks of blood since yesterday, denies any black stool. She also denies any significant chest pain, shortness of breath, fevers. She stated that her grandchildren has been sick with the flu the last couple of weeks. She also describes having nausea vomiting which are the usual for her chemotherapy. She also states been getting leg swelling for last couple of weeks. On arrival to the ED, patient was started on broad-spectrum antibiotics with Levaquin, she will also given Protonix, a CT abdomen revealed concentric wall thickening of the colon, trace pelvic ascites, mild transaminitis, normal lactic acid, elevated creatinine and BUN, thrombocytopenia, moderate anemia, leukocytosis, UA revealed UTI. On my initial assessment, patient was seen and examined at ER hallway. Granddaughter was present. Patient stated having described urinary symptoms, leg swelling however she denied any other current symptoms. She was on supplemental oxygen through nasal cannula at 2 L. Review of Systems Constitutional: Yes: Chills; No: Fever, Sweats, Weakness, Malaise, Other Eyes: No: Pain, Vision change, Conjunctivae inflammation, Eyelid inflammation, Other, Redness ENT: No: Ear pain, Ear discharge, Nose pain, Nose discharge, Nose congestion, Mouth pain, Mouth swelling, Throat pain, Throat swelling, Other Respiratory: No: Cough, Dry, Shortness of breath, SOB with excertion, Wheezing, Hemoptysis, Pleuritic Pain, Sputum, Wheezing, Other Cardiovascular: No: Chest Pain, Palpitations, Orthopnea, Paroxysmal Noc. Dyspnea, Edema, Lt Headedness, Other Gastrointestinal: Nausea, Vomiting, Hematochezia; No: Abdominal Pain, Diarrhea, Constipation, Melena, Other Genitourinary: Dysuria, Frequency; No Incontinence, No Hematuria, No Retention, No Other Musculoskeletal: No: other, neck pain, shoulder pain, arm pain, back pain, hand pain, leg pain, foot pain Skin: Lesions; No: Rash, Jaundice, Bruising, Other Neurological: No: Weakness, Numbness, Incoordination, Change in speech, Confusion, Seizures, Other Allergies: Coded Allergies: Penicillins (Verified Allergy, Severe, 05/09/20) Medications Current Medications Medications Dose Ordered Sig/Ivan Route Start Time Stop Time Status Last Admin Dose Admin Ondansetron HCl 4 mg Q4HP PRN IV 04/16/25 15:00 UNV Morphine Sulfate 1 mg Q6HP PRN IV 04/16/25 15:00 UNV Levofloxacin/ Dextrose 100 ml @ 100 mls/hr Q48H IV 04/17/25 10:00 UNV Pantoprazole Sodium 40 mg DAILY IV 04/17/25 10:00 UNV Hydralazine HCl 10 mg Q6HP PRN IV 04/16/25 15:30 UNV Albuterol 2.5 mg Q6HWA NEB 04/16/25 18:00 UNV Ipratropium [place] 0.5 mg Q6HWA NEB 04/16/25 18:00 UNV Exam Vital Signs Vital Signs Date Time Temp Pulse Resp B/P (MAP) Pulse Ox O2 Delivery O2 Flow Rate FiO2 04/16/25 14:18 97.1 63 18 132/52 (78) 98 97.1 Exam Physical examination as below: General: Awake, alert, in no acute distress. On supplemental oxygen nasal cannula HEENT: Head is normocephalic and atraumatic. Pupils are equal, round, and reacti ve to light. Extraocular muscles are intact. No nasal discharge. No facial trauma. Intraoral exam shows moist mucous membranes with no tonsillar enlargement or exudate. Neck: Supple with no cervical lymphadenopathy. Heart: Regular rate without murmur, rub, or gallop. Mild JVD distention Lungs: Mild bilateral crackles more prominent on left side Abdomen: No external sign of injury. Bowel sounds are present. Abdomen is soft, nontender. No rebound, no guarding, no rigidity. There are no palpable masses. There is no flank pain on exam. No CVA tenderness. Extremities: Strong peripheral pulses. There is no clubbing, no cyanosis. Plus one pitting edema in lower legs. Skin: Scattered whole-body patchy erythematous lesions on extremities and face, Neurologic: Cranial nerves II-XII intact without motor, sensory, or cerebellar deficit, no asterixis. Labs/Xrays Labs Test 04/16/25 14:49 04/16/25 11:01 Range/Units Urine Color Colorless Yellow Urine Clarity Turbid H Clear Urine pH 6.0 5.0-9.0 Urine Specific Dawn 1.010 1.001-1.035 Urine Protein 2+ H Negative Urine Ketones Negative Negative Urine Blood 1+ H Negative /uL Urine Nitrite Negative Negative Urine Bilirubin Negative Negative Urine Urobilinogen Normal Negative mg/dL Urine Leukocyte Esterase 3+ Negative /uL Urine RBC 3 0 - 4 /hpf Urine WBC Clumps Present None Seen /hpf Urine Microscopic WBC 184 H 0-5 /HPF Urine Squamous Epithelial Cells Few <5 /hpf Urine Bacteria Mod H None Seen /hpf Urine Mucus Few None Seen Urine Glucose Normal Normal mg/dL White Blood Count 21.6 H 4.4-10.8 10^3/uL Red Blood Count 2.89 L 4.0-5.20 10^6/uL Hemoglobin 9.4 L 12.2-16.2 g/dL Hematocrit 27.9 L 36.0-46.0 % Mean Corpuscular Volume 96.7 80.0-100.0 fL Mean Corpuscular Hemoglobin 32.4 H 28.0-32.0 pg Mean Corpuscular Hemoglobin Concent 33.5 32.0-36.0 g/dL Red Cell Distribution Width 20.5 H 11.8-14.3 % Platelet Count 73 L 140-450 10^3/uL Mean Platelet Volume 9.7 6.9-10.8 fL Neutrophils (%) (Auto) 37.0-80.0 % Lymphocytes (%) (Auto) 10.0-50.0 % Monocytes (%) (Auto) 0.0-12.0 % Basophils (%) (Auto) 0.0-2.0 % Neutrophils # (Auto) 1.6-8.6 10 ^3/uL Lymphocytes # (Auto) 0.4-5.4 10 ^3/uL Monocytes # (Auto) 0-1.3 10 ^3/uL Differential Total Cells Counted 100.0 100 Neutrophils % (Manual) 77 37.0-80.0 Band Neutrophils % (Manual) 6 Lymphocytes % (Manual) 6 L 10.0-50.0 Monocytes % (Manual) 10 0-12 Eosinophils % (Manual) 0 0-7 Basophils % (Manual) 0 0.0-2.0 Metamyelocytes % (manual) 0 Myelocytes % (Manual) 1 Promyelocytes % (Manual) 0 Blast Cells % (Manual) 0 Reactive Lymphocytes 0 Smudge Cells 2 /100 WBC Platelet Estimate Decreased Large Platelets Few Anisocytosis (manual) Slight Schistocytes Few Sodium Level 132 L 136-145 mmol/L Potassium Level 4.3 3.5-5.1 mmol/L Chloride Level 103 98-107 mmol/L Carbon Dioxide Level 21 20-31 mmol/L Anion Gap 8 5-15 Blood Urea Nitrogen 40 H 9-23 mg/dL Creatinine 1.73 H 0.550-1.02 mg/dL Glomerular Filtration Rate Calc 29 >90 mL/min BUN/Creatinine Ratio 23.1 H 10.0-20.0 Serum Glucose 119 H 74-106 mg/dL Lactic Acid Level 1.2 0.4-2.0 mmol/L Calcium Level 8.8 8.7-10.4 mg/dL Total Bilirubin 0.8 0.2-1.0 mg/dL Aspartate Amino Transferase (AST) 69 H 13-40 U/L Alanine Aminotransferase (ALT) 36 7-40 U/L Alkaline Phosphatase 179 H 46-116 U/L Troponin I High Sensitivity 11 </=34 ng/L Total Protein 6.9 5.7-8.2 g/dL Albumin 3.5 3.2-4.8 g/dL SEPSIS Sepsis Screen Date sepsis recognized/suspect: Apr 16, 2025 Time Sepsis recognized/suspect: 0840 Recent Procedure: No On Antibiotic Therapy: No Respiratory Rate >20: No Heart Rate >90: No Temp<36 C (96.8 F) or >38.3 C: No SBP <90 or MAP <65 mmHG: No New Acute Mental Status Change: No Is the patient on CPAP, BIPAP,: No Physician Orders Hide Buffer (04/16/25 ) Ct Ab Pel Wo Con-No Oral Or Iv (04/16/25 10:46) Blood Culture (04/16/25 12:10) Admit (04/16/25 14:56) Allergies (04/16/25 14:56) Code Status (04/16/25 14:56) Oxygen Per Hour (04/16/25 14:56) Ondansetron Hcl (Zofran) (04/16/25 15:00) Complete Blood Count (04/17/25 04:00) Comprehensive Metabolic Panel (04/17/25 04:00) Echo 2d Mode Cardiac Dop (04/16/25 14:56) Condition: Serious (04/16/25 14:56) Morphine Sulfate Injection (04/16/25 15:00) Oxygen By Nasal Cannula (04/16/25 14:56) Notify Of Changes From Base (04/16/25 14:56) Emergency Dysrhythmia Protocol (04/16/25 14:56) Rhythm Strips Once Every Shift (04/16/25 14:56) Sales Representative Printing Paper For 24 Hours (04/16/25 14:56) Npo Except Ice Chips (04/16/25 14:56) Chest Two Views Routine (04/16/25 14:56) Npo (Nothing By Mouth) Diet (04/16/25 Dinner) Stool Occult Blood (04/16/25 14:56) Urine Protein (04/16/25 14:56) Urine Protein/Creatinine Ratio (04/16/25 ) Osmolality Urine (04/16/25 14:56) Urine Sodium (04/16/25 14:56) Urine Creatinine (04/16/25 14:56) B-Type Natriuretic Peptide (04/16/25 14:56) Urine Bacterial Culture (04/16/25 14:56) Levofloxacin 500mg (Levaquin 500mg/ 100m (04/17/25 10:00) Pantoprazole (Protonix) (04/17/25 10:00) Hydralazine Injection (Apresoline Inject (04/16/25 15:30) Albuterol Medneb (Ventolin Medneb) (04/16/25 18:00) Ipratropium Medneb (Atrovent Medneb) (04/16/25 18:00) Vital Signs Date Time Temp Pulse Resp B/P (MAP) Pulse Ox O2 Delivery O2 Flow Rate FiO2 04/16/25 14:18 97.1 63 18 132/52 (78) 98 97.1 04/16/25 09:27 73 04/16/25 09:02 73 04/16/25 08:51 98.0 93 74 146/63 16 98.0 Laboratory Tests Test 04/16/25 11:01 Lactic Acid Level 1.2 mmol/L (0.4-2.0) White Blood Count 21.6 10^3/uL (4.4-10.8) H Medications Medications Dose Ordered Sig/Ivan Route Start Time Stop Time Status Last Admin Dose Admin Levofloxacin 500 mg ONCE ONCE PO 04/16/25 12:15 04/16/25 12:16 DC 04/16/25 12:20 500 MG Pantoprazole Sodium 40 mg ONCE ONCE IV 04/16/25 11:00 04/16/25 11:01 DC 04/16/25 12:21 40 MG Assessment/Plan Assessment/Plan #Complicated UTI #AARON on VMN, likely prerenal Levaquin IV Urine culture pending, blood culture ordered Lactic acid within normal limits CT abdomen reviewed Urine sodium, urine creatinine and urine protein ordered #Acute on chronic systolic/diastolic CHF #Acute on chronic hypoxic respiratory failure Admit to telemetry Order chest x-ray Order BNP Lasix 40 mg IV Strict in and outs DuoNebs q.6 Echo pending #Suspected lower GI bleeding #Anemia normocytic normochromic, moderate #Thrombocytopenia, moderate Order H and H, iron panel, ferritin, PT/PTT Order stool occult blood test NPO except ice chips Monitor for active bleeding #Transaminitis, mild #Liver cancer, undergoing chemotherapy Monitor FU with oncologist at [facility] #GERD Protonix 40 mg IV q.d. #Dyslipidemia #Hypertension, controlled Monitor Hydralazine IV p.r.n. DVT prophylaxis: Held due to thrombocytopenia, rule out GI bleeding PUD prophylaxis: Protonix Goals of care were discussed for over 30 minutes. FULL CODE. Case was discussed with Dr. [place] Plan discussed with: Patient, Other (Granddaughter, RN) My Orders Orders - JOSE ROSA RESIDENT Procedure Category Date Status Time Admit ADMIT 04/16/25 Transmitted 14:56 Allergies DMITRI 04/16/25 In Process 14:56 Code Status CODE 04/16/25 Transmitted 14:56 Oxygen Per Hour RT 04/16/25 Transmitted 14:56 Ondansetron Hcl PHA 04/16/25 Logged (Zofran) 15:00 Complete Blood Count LAB 04/17/25 Verified 04:00 Comprehensive LAB 04/17/25 Verified Metabolic Panel 04:00 Echo 2d Mode Cardiac US 04/16/25 Logged DOP 14:56 Condition: Serious DMITRI 04/16/25 In Process 14:56 Morphine Sulfate PHA 04/16/25 Logged Injection 15:00 Oxygen By Nasal RT 04/16/25 Transmitted Cannula 14:56 Notify Of Changes [facility] 04/16/25 In Process From Base 14:56 Emergency Dysrhythmia [facility] 04/16/25 In Process Protocol 14:56 Rhythm Strips Once [facility] 04/16/25 In Process Every Shift 14:56 Sales Representative Printing Paper For [facility] 04/16/25 In Process 24 Hours 14:56 Npo Except Ice Chips DMITRI 04/16/25 In Process 14:56 Chest Two Views XY 04/16/25 Logged Routine 14:56 Npo (Nothing By DIET 04/16/25 Transmitted Mouth) Diet Dinner Stool Occult Blood LAB 04/16/25 Logged 14:56 Urine Protein LAB 04/16/25 Logged 14:56 Urine LAB 04/16/25 Logged Protein/Creatinine Osmolality Urine LAB 04/16/25 Logged 14:56 Urine Sodium LAB 04/16/25 Logged 14:56 Urine Creatinine LAB 04/16/25 Logged 14:56 B-Type Natriuretic LAB 04/16/25 Logged Peptide 14:56 Urine Bacterial JOSH 04/16/25 Logged Culture 14:56 Levofloxacin 500mg PHA 04/17/25 Logged (Levaquin 500mg/ 100m 10:00 Pantoprazole PHA 04/17/25 Logged (Protonix) 10:00 Hydralazine Injection PHA 04/16/25 Logged (Apresoline Inject 15:30 Albuterol Medneb PHA 04/16/25 Logged (Ventolin Medneb) 18:00 Ipratropium Medneb PHA 04/16/25 Logged (Atrovent Medneb) 18:00 Date of Service: Apr 16, 2025 Billing Provider: ИВАН BOSTON MD Common Visit Codes: [id number] INP/OBS CARE (HIGH) Secondary Visit Codes: [id number] CARE PLAN 30 MINUTES JOSE ROSA RESIDENT Apr 16, 2025 15:35 ИВАН BOSTON MD Apr 17, 2025 11:25
--- NOTE | 2025-04-16 15:42 | DVH ---
EXAM: XY CHEST TWO VIEWS ROUTINE HISTORY: sob COMPARISON: Chest x-ray dated 02/24/2025. TECHNIQUE: Frontal and lateral views of the chest were performed. FINDINGS: The right hemidiaphragm is elevated, greater than that seen previously. No pneumothorax, pleural effu sions, or consolidative infiltrates. There is mild central interstitial prominence. There is mild nusrat ear scarring in the right mid lung. The heart is enlarged. No fractures are identified about the clara ny thorax. There is slight midthoracic levoscoliosis. IMPRESSION: 1. Cardiomegaly with mild central interstitial prominence which may be due to reactive airways diseas e or mild CHF. 2. Elevated right hemidiaphragm.
[2025-04-16 15:51] LABS: Protein, Urine 161.0 mg/dL (1-14)
[2025-04-16 16:00] LABS: Iron 132.0 ug/dL (50-170)
[2025-04-16 16:03] LABS: Total Iron Binding Capacity 319.0 ug/dL (250-425)
[2025-04-16 16:21] LABS: INR 1.12 (0.9-1.15); Partial Thromboplastin Time 24.5 SEC (24.5-34.5); Prothrombin Time 11.7 sec (9.3-11.8)
[2025-04-16 16:57] LABS: Hematocrit 27.9 % (36.0-46.0); Hemoglobin 9.3 g/dL (12.2-16.2)
[2025-04-16 18:01] VITALS: PULSE 67; RESP 16; O2SAT 99
[2025-04-16] MEDS: IPRATROPIUM BROM 0.5 MG/2.5ML INH SOL NEB SCH (18:01)
[2025-04-16] MEDS: ALBUTEROL SULF 2.5 MG/0.5ML(0.5%) NEB SOLN NEB SCH (18:01)
[2025-04-16 18:07] VITALS: PULSE 69; RESP 16; O2SAT 100
[2025-04-16 18:40] VITALS: PULSE 69; RESP 22; O2SAT 98
[2025-04-16 18:41] LABS: COVID19 ANTIGEN SOFIA FIA NEGATIVE (NEGATIVE)
[2025-04-16] MEDS: FUROSEMIDE 40 MG/4 ML VIAL IV ONE (19:03)
[2025-04-16 19:57] VITALS: PULSE 67; RESP 16; O2SAT 99
[2025-04-16 21:00] VITALS: BP 142/65; PULSE 71; RESP 22; TEMP 97.3; O2SAT 99
[2025-04-17] VITALS (15 sets, daily range): BP systolic 134–170; BP diastolic 63–84; PULSE 72–88; RESP 14–23; TEMP 97.6–98.6; O2SAT 91–100
[2025-04-17] MEDS ORDERED: HYDR50TA47 PO (00:58)
[2025-04-17] MEDS ORDERED: METO1TAB77 PO (00:59)
[2025-04-17] MEDS ORDERED: NIFE90TA75 PO (00:59)
[2025-04-17] MEDS ORDERED: ALBUAER3 IN (00:59)
[2025-04-17] MEDS ORDERED: ROSU10TA64 PO (01:00)
[2025-04-17] MEDS ORDERED: PANT40TA2 PO (01:00)
[2025-04-17 07:58] LABS: Hematocrit 24.8 % (36.0-46.0); Hemoglobin 8.6 g/dL (12.2-16.2); Mean Corpuscular Hemoglobin 33.9 pg (28.0-32.0); Mean Corpuscular Volume 97.1 fL (80.0-100.0); Nucleated Red Blood Cells % 0.4 %
[2025-04-17 08:16] LABS: Alanine Aminotransferase 40 U/L (7-40); Albumin 3.3 g/dL (3.2-4.8); Anion Gap 12 (5-15); BUN/Creatinine Ratio 25.6 (10.0-20.0); Bilirubin, Total 0.7 mg/dL (0.2-1.0); Calcium 9.0 mg/dL (8.7-10.4); Carbon Dioxide 21 mmol/L (20-31); Chloride 106 mmol/L (98-107); Potassium 4.2 mmol/L (3.5-5.1); Sodium 139 mmol/L (136-145); Total Protein 6.5 g/dL (5.7-8.2)
[2025-04-17 08:17] LABS: Alkaline Phosphatase 161 U/L (46-116); Blood Urea Nitrogen 41 mg/dL (9-23); Glucose 71 mg/dL (74-106)
[2025-04-17] MEDS: ONDANSETRON HCL 4 MG/2 ML VIAL IV PRN (09:53)
[2025-04-17] MEDS: PANTOPRAZOLE 40 MG/10 ML VIAL INJ IV SCH (09:53)
[2025-04-17] MEDS: FUROSEMIDE 40 MG/4 ML VIAL IV SCH ×2 (09:54→17:58)
[2025-04-17] MEDS: hydrALAZINE HCL 20 MG/ML VL IV PRN (12:30)
--- NOTE | 2025-04-17 19:47 | DVHPNRES ---
Progress Note Date Seen: Apr 17, 2025 Resident Creating Document: SONAL ARCE RESIDENT Has the PT tested + for MRSA If YES, has PT been informed?: No Medical Necessity Reason Pt with a Central, PICC or Fol: No (RN) Subjective Review of Systems Ms Dias, is an 79-year-old female who was brought in by her daughter to the ED with chief complain of dysuria. Patient states that for the last two days she has been experiencing worsening dysuria, urinary urgency, urinary frequency and foul odor urine. Which has been associated with chills, back pain, mild lower quadrant abdominal pain. She also mentions having stools with red streaks of blood since yesterday, denies any black stool. She also denies any significant chest pain, shortness of breath, fevers. She stated that her grandchildren has been sick with the flu the last couple of weeks. She also describes having nausea vomiting which are the usual for her chemotherapy. She also states been getting leg swelling for last couple of weeks. PMH: Hypertension, liver cancer (started chemotherapy on January 2025, last chemo was two weeks ago, oncologist is from [facility].) Dyslipidemia, PSH: Denies FH: Noncontributory SH: Denies alcohol, smoking or drug use. The patient was seen and examined at bedside today. She reports having dysuria, no new complaints reported. Objective vital signs Vital Sign Date Time Temp Pulse Resp B/P (MAP) Pulse Ox O2 Delivery O2 Flow Rate FiO2 04/17/25 18:54 77 14 99 04/17/25 18:49 Nasal Cannula 2.0 04/17/25 18:49 28 04/17/25 17:58 165/78 04/17/25 17:00 98.6 98.6 Total Intake and Output 04/16/25 04/16/25 04/17/25 15:00 23:00 07:00 Intake Total 200 ml Balance 200 ml medications Current Medications Medications Dose Ordered Sig/Ivan Route Start Time Stop Time Status Last Admin Dose Admin Ondansetron HCl 4 mg Q4HP PRN IV 04/16/25 15:00 04/17/25 16:07 4 MG Morphine Sulfate 1 mg Q6HP PRN IV 04/16/25 15:45 Pantoprazole Sodium 40 mg DAILY IV 04/17/25 10:00 04/17/25 09:53 40 MG Hydralazine HCl 10 mg Q6HP PRN IV 04/16/25 15:30 04/17/25 12:30 10 MG Albuterol 2.5 mg Q6HWA NEB 04/16/25 18:00 04/17/25 18:47 2.5 MG Ipratropium [place] 0.5 mg Q6HWA NEB 04/16/25 18:00 04/17/25 18:47 0.5 MG Furosemide 40 mg BIDD IV 04/17/25 18:00 04/17/25 17:58 40 MG Levofloxacin 50 ml @ 50 mls/hr DAILY IV 04/18/25 10:00 Examination Exam Physical examination as below: General: Awake, alert, in no acute distress. On supplemental oxygen nasal cannula HEENT: Head is normocephalic and atraumatic. Pupils are equal, round, and reactive to light. Extraocular muscles are intact. No nasal discharge. No facial trauma. Intraoral exam shows moist mucous membranes with no tonsillar enlargement or exudate. Neck: Supple with no cervical lymphadenopathy. Heart: Regular rate without murmur, rub, or gallop. Mild JVD distention Lungs: Mild bilateral crackles more prominent on left side Abdomen: No external sign of injury. Bowel sounds are present. Abdomen is soft, nontender. No rebound, no guarding, no rigidity. There are no palpable masses. There is no flank pain on exam. No CVA tenderness. Extremities: Strong peripheral pulses. There is no clubbing, no cyanosis. Plus one pitting edema in lower legs. Skin: Scattered whole-body patchy erythematous lesions on extremities and face, Neurologic: Cranial nerves II-XII intact without motor, sensory, or cerebellar deficit, no asterixis. laboratory and microbiology Laboratory Tests 04/17/25 06:20 Test 04/17/25 06:20 Range/Units Serum Glucose 71 L 74-106 mg/dL Microbiology Date/Time Source Procedure Growth Status 04/16/25 14:49 Voided Urine Urine Culture - Preliminary Resulted 04/16/25 12:56 Blood Blood Culture - Preliminary NO GROWTH AFTER 24 HOURS OF INCUBATION. Resulted Labs and/or images reviewed: Labs reviewed by me, Image(s) reviewed by me Problem List/Assessment/Plan Problem List/Assessment/Plan #Complicated UTI #AARON on VMN, likely prerenal Levaquin IV daily Urine culture blood culture Lactic acid within normal limits CT abdomen reviewed Urine sodium 14 L, urine creatinine WNL and urine protein 114 H #Acute on chronic systolic/diastolic CHF #Acute on chronic hypoxic respiratory failure Admit to teleme chest x-ray: mild congestion BNP WNL Lasix 40 mg IV Strict in and outs DuoNebs q.6 Echo completed, results pending #Suspected lower GI bleeding #Anemia normocytic normochromic, moderate #Thrombocytopenia, moderate Ferritin high, TIBC normal Stool occult blood test negative Advanced diet as tolerated. #Transaminitis, mild #Liver cancer, undergoing chemotherapy Monitor FU with oncologist at [facility] #GERD Protonix 40 mg IV q.d. #Dyslipidemia #Hypertension, controlled Monitor Hydralazine IV p.r.n. DVT prophylaxis: Held due to thrombocytopenia PUD prophylaxis: Protonix Goals of care were discussed for over 30 minutes. FULL CODE. Case was discussed with Dr. Sunshine Plan discussed with: Patient, Other (RN) My Orders My Orders Orders - SONAL ARCE Procedure Category Date Status Time Furosemide Injection PHA 04/17/25 In Process (Lasix Injection) 18:00 Levofloxacin 250mg PHA 04/18/25 In Process (Levaquin 250mg) 10:00 Date of Service: Apr 17, 2025 Billing Provider: ИВАН SUNSHINE MD Common Visit Codes: [id number] INP/OBS CARE(HIGH) SONAL ARCE Apr 17, 2025 19:47 ИВАН SUNSHINE MD Apr 22, 2025 20:49
[2025-04-18] VITALS (10 sets, daily range): BP systolic 151–167; BP diastolic 71–92; PULSE 68–85; RESP 16–20; TEMP 36.3; O2SAT 92–100
[2025-04-18] MEDS: MORPHINE SULFATE 4 MG/ML SYR/VIAL IV PRN (00:38)
[2025-04-18 07:45] LABS: Hematocrit 25.6 % (36.0-46.0); Hemoglobin 8.7 g/dL (12.2-16.2); Mean Corpuscular Hemoglobin 33.6 pg (28.0-32.0); Mean Corpuscular Volume 98.2 fL (80.0-100.0)
[2025-04-18 07:56] LABS: Anion Gap 11 (5-15); Calcium 8.7 mg/dL (8.7-10.4); Carbon Dioxide 22 mmol/L (20-31); Potassium 3.8 mmol/L (3.5-5.1); Sodium 141 mmol/L (136-145)
[2025-04-18 07:59] LABS: Chloride 108 mmol/L (98-107)
[2025-04-18 08:02] LABS: Glucose 81 mg/dL (74-106)
[2025-04-18 08:03] LABS: BUN/Creatinine Ratio 21.4 (10.0-20.0); Blood Urea Nitrogen 31 mg/dL (9-23)
[2025-04-18 09:08] LABS: Anisocytosis Slight; Total Cells Counted 100.0 (100)
[2025-04-18] MEDS: ACETAMINOPHEN 325 MG TAB PO ONE (11:01)
--- NOTE | 2025-04-18 11:10 | DVHDSRES ---
Discharge Summary Date of Admission Resident Creating Document: SONAL ARCE RESIDENT Apr 16, 2025 at 14:56 Date of Discharge: Apr 18, 2025 Admitting Diagnosis Complicated UTI Labs/Diagnostic Data: Laboratory Results Test 04/18/25 06:38 04/17/25 12:47 04/17/25 06:20 04/17/25 05:35 White Blood Count 7.4 10^3/uL (4.4-10.8) Red Blood Count 2.60 10^6/uL (4.0-5.20) Hemoglobin 8.7 g/dL (12.2-16.2) Hematocrit 25.6 % (36.0-46.0) Mean Corpuscular Volume 98.2 fL (80.0-100.0) Mean Corpuscular Hemoglobin 33.6 pg (28.0-32.0) Mean Corpuscular Hemoglobin Concent 34.2 g/dL (32.0-36.0) Red Cell Distribution Width 21.4 % (11.8-14.3) Platelet Count 96 10^3/uL (140-450) Mean Platelet Volume 10.0 fL (6.9-10.8) Neutrophils (%) (Auto) % (37.0-80.0) Lymphocytes (%) (Auto) % (10.0-50.0) Monocytes (%) (Auto) % (0.0-12.0) Basophils (%) (Auto) % (0.0-2.0) Neutrophils # (Auto) 10 ^3/uL (1.6-8.6) Lymphocytes # (Auto) 10 ^3/uL (0.4-5.4) Monocytes # (Auto) 10 ^3/uL (0-1.3) Differential Total Cells Counted 100.0 (100) Neutrophils % (Manual) 59 (37.0-80.0) Band Neutrophils % (Manual) 8 Lymphocytes % (Manual) 11 (10.0-50.0) Monocytes % (Manual) 22 (0-12) Eosinophils % (Manual) 0 (0-7) Basophils % (Manual) 0 (0.0-2.0) Metamyelocytes % (manual) 0 Myelocytes % (Manual) 0 Promyelocytes % (Manual) 0 Blast Cells % (Manual) 0 Reactive Lymphocytes 0 Platelet Estimate Decreased Anisocytosis (manual) Slight Reticulocyte Count (auto) 5.71 % (0.5-1.5) Sodium Level 141 mmol/L (136-145) Potassium Level 3.8 mmol/L (3.5-5.1) Chloride Level 108 mmol/L (98-107) Carbon Dioxide Level 22 mmol/L (20-31) Anion Gap 11 (5-15) Blood Urea Nitrogen 31 mg/dL (9-23) Creatinine 1.45 mg/dL (0.550-1.02) Glomerular Filtration Rate Calc 36 mL/min (>90) BUN/Creatinine Ratio 21.4 (10.0-20.0) Serum Glucose 81 mg/dL (74-106) Calcium Level 8.7 mg/dL (8.7-10.4) POC Glucose 103 mg/dl (70-106) Eosinophils (%) (Auto) 0.4 % (0.0-7.0) Eosinophils # (Auto) 0.1 10 ^3/uL (0-0.8) Basophils # (Auto) 0 10 ^3/uL (0-0.2) Nucleated Red Blood Cells 0.4 % Total Bilirubin 0.7 mg/dL (0.2-1.0) Aspartate Amino Transferase (AST) 83 U/L (13-40) Alanine Aminotransferase (ALT) 40 U/L (7-40) Alkaline Phosphatase 161 U/L (46-116) Total Protein 6.5 g/dL (5.7-8.2) Albumin 3.3 g/dL (3.2-4.8) Stool Occult Blood Sample #3 Negative (Negative) Test 04/16/25 17:34 04/16/25 14:49 04/16/25 12:56 04/16/25 11:01 Influenza Type A Antigen Negative (Negative) Influenza Type B Antigen Negative (Negative) SARS-CoV-2 Antigen (Rapid) Negative (NEGATIVE) Urine Color Colorless (Yellow) Urine Clarity Turbid (Clear) Urine pH 6.0 (5.0-9.0) Urine Specific Hollis 1.010 (1.001-1.035) Urine Protein 2+ (Negative) Urine Ketones Negative (Negative) Urine Blood 1+ /uL (Negative) Urine Nitrite Negative (Negative) Urine Bilirubin Negative (Negative) Urine Urobilinogen Normal mg/dL (Negative) Urine Leukocyte Esterase 3+ /uL (Negative) Urine RBC 3 /hpf (0 - 4) Urine WBC Clumps Present /hpf (None Seen) Urine Microscopic WBC 184 /HPF (0-5) Urine Squamous Epithelial Cells Few /hpf (<5) Urine Bacteria Mod /hpf (None Seen) Urine Mucus Few (None Seen) Urine Osmolality 248 mOsm/kg Urine Creatinine 87.50 mg/dL (30.0-125.0) Urine Protein/Creatinine Ratio 1.84 Urine Sodium 14 mmol/L (40-220) Urine Glucose Normal mg/dL (Normal) Urine Total Protein 161.0 mg/dL (1-14) Prothrombin Time 11.7 sec (9.3-11.8) Prothrombin Time INR 1.12 (0.9-1.15) Activated Partial Thromboplast Time 24.5 SEC (24.5-34.5) Iron Level 132 ug/dL (50-170) Total Iron Binding Capacity 319 ug/dL (250-425) Percent Iron Saturation 41.4 % (15-50) Ferritin 353.9 ng/mL (10-291) Smudge Cells 2 /100 WBC Large Platelets Few Schistocytes Few Lactic Acid Level 1.2 mmol/L (0.4-2.0) Troponin I High Sensitivity 11 ng/L (</=34) B-Type Natriuretic Peptide 194.57 pg/mL (0-100) Other Laboratory Tests 04/18/25 06:38 Brief Hx & Hospital Course: HPI Ms Heath, is an 79-year-old female who was brought in by her daughter to the ED with chief complain of dysuria. Patient states that for the last two days she has been experiencing worsening dysuria, urinary urgency, urinary frequency and foul odor urine. Which has been associated with chills, back pain, mild lower quadrant abdominal pain. She also mentions having stools with red streaks of blood since yesterday, denies any black stool. She also denies any significant chest pain, shortness of breath, fevers. She stated that her grandchildren has been sick with the flu the last couple of weeks. She also describes having nausea,vomiting which are the usual for her chemotherapy. She also states been getting leg swelling for last couple of weeks. PMH: Hypertension, liver cancer (started chemotherapy on January 2025, last chemo was two weeks ago, oncologist is from [facility].) Dyslipidemia, PSH: Denies FH: Noncontributory SH: Denies alcohol, smoking or drug use. Brief hospital course Patient is a 79-year-old female with a history of liver cancer currently on chemotherapy came to the hospital with a chief complaint of dysuria and also worsening shortness of breath for which she was admitted. On arrival patient had elevated white blood cell count and was septic. Initial CT abdomen pelvis showed mild colitis and the patient was started on IV antibiotics. Urinalysis revealed with the patient had a urinary tract infection and urine was sent for culture which showed growth of E coli and the patient was started on IV antibiotics. For her shortness of breath patient was given IV Lasix with a improved urine output and subsequently improved oxygenation with lower oxygen requirement to her baseline home oxygen. Has a patient also complained of some red streaks of blood in the stool, sample was sent for FOBT which was negative and the patient's H&H remained stable. Patient remained hemodynamically stable and was later started on her home hypertensive medications. Sepsis improved with a white blood cell count coming down into the normal range and patient did not have any shortness of breath while being on her home oxygen. Patient is sent home on p.o. cefpodoxime for 7 days for UTI and Lasix 40 mg daily for 7 days in the end later as needed for shortness of breath or pedal edema. Advised to follow up with the primary care provider within 1 week. The patient was hemodynamically stable, verbalized understanding of the discharge plan. The the treatment and discharge plan was explained thoroughly to the daughter was at bedside. Exam Physical examination as below: General: Awake, alert, in no acute distress. On supplemental oxygen nasal cannula HEENT: Head is normocephalic and atraumatic. Pupils are equal, round, and reactive to light. Extraocular muscles are intact. No nasal discharge. No facial trauma. Intraoral exam shows moist mucous membranes with no tonsillar enlargement or exudate. Neck: Supple with no cervical lymphadenopathy. Heart: Regular rate without murmur, rub, or gallop. Mild JVD distention Lungs: Mild bilateral crackles more prominent on left side Abdomen: No external sign of injury. Bowel sounds are present. Abdomen is soft, nontender. No rebound, no guarding, no rigidity. There are no palpable masses. There is no flank pain on exam. No CVA tenderness. Extremities: Strong peripheral pulses. There is no clubbing, no cyanosis. Plus one pitting edema in lower legs. Skin: Scattered whole-body patchy erythematous lesions on extremities and face, Neurologic: Cranial nerves II-XII intact without motor, sensory, or cerebellar deficit, no asterixis. Operations or Procedures PATIENT: MARITZA HEATH V ACCT: [id number] UNIT: [id number] : 1945 LOC: OVERFLOW ROOM / BED: [facility] / A AGE / SEX: 79 / F ADM STATUS: ADM IN SERVICE 1456 ORDERING PHYSICIAN: JOSE ROSA PROCEDURE(s): CXR2 - CHEST TWO VIEWS ROUTINE REASON: sob ORDER NUMBER(s): [id number], ACCESSION NUMBER(s): [id number] EXAM: XY CHEST TWO VIEWS ROUTINE HISTORY: sob COMPARISON: Chest x-ray dated 02/24/2025. TECHNIQUE: Frontal and lateral views of the chest were performed. FINDINGS: The right hemidiaphragm is elevated, greater than that seen previously. No pneumothorax, pleural effusions, or consolidative infiltrates. There is mild central interstitial prominence. There is mild linear scarring in the right mid lung. The heart is enlarged. No fractures are identified about the bony thorax. There is slight midthoracic levoscoliosis. IMPRESSION: 1. Cardiomegaly with mild central interstitial prominence which may be due to reactive airways disease or mild CHF. 2. Elevated right hemidiaphragm. ATED BY: SOLITARIO OLIVEIRA MD DICTATED DATE/TIME: 04/16/251538 SIGNED BY: SOLITARIO OLIVEIRA MD SIGNED DATE/TIME: 04/16/251538 CC: Ph: [phone] DIAGNOSTIC IMAGING Diagnostic Imaging Report : [id number] Signed PATIENT: MARITZA HEATH V ACCT: [id number] UNIT: [id number] : 1945 LOC: ER ROOM / BED: / AGE / SEX: 79 / F ADM STATUS: REG ER SERVICE 1046 ORDERING PHYSICIAN: TERE BARNARD DO PROCEDURE(s): ABPL - CT AB PEL WO CON-NO ORAL OR IV REASON: rectal bleed ORDER NUMBER(s): [id number], ACCESSION NUMBER(s): [id number] Exam: CT CT AB PEL WO CON-NO ORAL OR IV History: rectal bleed Comparison Study: None Technique: Multidetector spiral CT of the abdomen was performed from lung bases to pubic symphysis. Imaging was performed without IV contrast. Axial, coronal and sagittal multiplanar reformats were obtained from the axial data set by the technologist. Radiation Dose : 1. Abdomen/Pelvis: CTDIvol 7.99 mGy, DLP 465 mGy*cm. Findings: Evaluation of solid organs is limited due to lack of intravenous contrast use. Lung Bases: No acute or significant lung base finding. Normal heart size. No pleural or pericardial effusion. Liver: The liver is normal in size. No focal lesions. Gallbladder and Biliary Tree: Unremarkable Spleen: Unremarkable Pancreas: The pancreas is grossly normal in appearance. Adrenal Glands: Unremarkable Kidneys: Kidneys are grossly normal without calculi or hydronephrosis. Bladder: Grossly unremarkable for degree of distention. Bowel: The stomach is grossly normal in appearance. Concentric wall thickening throughout the colon may reflect mild colitis. The appendix is not visualized; however, no secondary findings of acute appendicitis identified. Ascites: Trace pelvic ascites. Condition at Discharge: Stable Final Diagnosis/Problems List #Complicated UTI #AARON on VMN, likely prerenal #Acute on chronic systolic/diastolic CHF #Acute on chronic hypoxic respiratory failure #Suspected lower GI bleeding #Anemia normocytic normochromic, moderate #Thrombocytopenia, moderate #Transaminitis, mild #Liver cancer, undergoing chemotherapy #GERD #Dyslipidemia #Hypertension, controlled Discharge Disposition: Home (RN) Discharge Instruct/Medications Scheduled Cefpodoxime Proxetil (Cefpodoxime Proxetil), 200 MG PO BID Furosemide (Furosemide), 40 MG PO DAILY Hydralazine Hcl (Hydralazine Hcl), 1 TAB PO TID, (Reported) Metoprolol Tartrate (Lopressor), 1 TAB PO DAILY, (Reported) Nifedipine (Nifedipine Er), 1 TAB PO DAILY, (Reported) Pantoprazole Sodium Sesquihydr (Protonix), 40 MG PO DAILY, (Reported) Rosuvastatin Calcium (Rosuvastatin Calcium), 10 MG PO DAILY, (Reported) Miscellaneous Medications Albuterol Sulfate (Ventolin Mdi), 90 MCG IN, (Reported) Discharge Statement: "Patient was advised to return to the ER or call 911 if any headaches, dizziness, shortness of breath, chest pain, abdominal pain, bleeding, fevers, or worsening of medical condition. Patient was counseled about treatment plan, medications, possible side effects, patientverbalized understanding. All questions were answered to the best of my ability. This discharge took greater then 30 minutes in planning, reviewing documentation, counseling the patient, and discussing with other team members." ASSESSMENT ASSESSMENT Assessment Date of Service: Apr 18, 2025 Billing Provider: ИВАН SUNSHINE MD Common Visit Codes: 97060-GTZ/OBS DISCH DAY >30min SONAL ARCE RESIDENT Apr 18, 2025 11:10 BARBARA FAM RESIDENT Apr 18, 2025 19:40 ИВАН SUNSHINE MD Apr 22, 2025 20:49
[2025-04-18] MEDS ORDERED: CEFP200T15 PO (14:51)
[2025-04-18] MEDS ORDERED: FURO40TA4 PO (14:51)
--- NOTE | 2025-04-19 13:16 | DVHSR ---
APPROVED REPORT EXAM: Two-dimensional and M-mode echocardiogram with Doppler and color Doppler. Blood Pressure: 157/77 mmHg INDICATION Pulmonary Edema RISK FACTORS Height: 5' 2", Weight: 159 DIMENSIONS LVDd5.5 (3.8-5.7cm)LA (2D)4.0 (1.9-4.0cm)Aortic Root3.1 (2.0-3.7cm) LVDs3.6 (2.5-4.0cm)LA (MM) (1.9-4.0cm)Aortic Cusp Exc1.5 (1.5-2.0cm) EF (%) 62.0 (55-70%)Rt. Atrium4.0 (1.9-4.0cm)Asc. Aorta cm IVSd1.1 (0.7-1.1cm)RV (D) (1.8-2.4cm) PWd1.1 (0.7-1.1cm) Mitral Valve MitralMitral Stenosis E wave1.20m/sMV Mean GR.mmHg A wave1.80m/sMV Peak GR.mmHg E/A ratio0.72D MVAcm2 Aortic Valve Aortic ValveAortic Stenosis V10.90m/Carlos Enrique Mean GR.10mmHg V22.20m/Carlos Enrique Peak GR.20mmHg LVOT Diameter2.2 (1.8-2.4cm)Doppler AVA1.55cm2 Pulmonic Valve V20.90m/s Tricuspid Valve TR Velocity3.20m/s [id number] Conclusion lvef 60% rv enlarged left atrium enlarged mild tricuspid regurg
== END 2025-04-18 17:10 | disposition home or self-care (01) | DRG 291 ==
LOC: ER 08:49 → OVERFLOW 14:56 → TELE-WESTW 20:30
PROVIDERS: ADMIT Internal Medicine Geriatric Medicine; ATTEND Internal Medicine Geriatric Medicine
DX: I11.0 Hypertensive heart disease with heart failure (principal); I50.43 Acute on chronic combined systolic (congestive) and diastolic (congestive) heart failure; J96.21 Acute and chronic respiratory failure with hypoxia; N17.0 Acute kidney failure with tubular necrosis; N39.0 Urinary tract infection, site not specified; C22.8 Malignant neoplasm of liver, primary, unspecified as to type; K62.5 Hemorrhage of anus and rectum; Z20.822 Contact with and (suspected) exposure to COVID-19; K21.9 Gastro-esophageal reflux disease without esophagitis; R74.01 Elevation of levels of liver transaminase levels; E78.5 Hyperlipidemia, unspecified; D69.6 Thrombocytopenia, unspecified; D64.9 Anemia, unspecified; K52.9 Noninfective gastroenteritis and colitis, unspecified; Z92.21 Personal history of antineoplastic chemotherapy
CPT/HCPCS: 36415; 71046; 74176; 80048; 80053; 81001; 82270; 82570; 82728; 82962; 83540; 83550; 83605; 83880; 83935; 84156; 84300; 84484; 85007; 85014; 85018; 85025; 85027; 85045; 85610; 85730; 86850; 86900; 86901; 87040; 87070; 87081; 87086; 87088; 87186; 87205; 87426; 87804; 93005; 93306; 94640; 96374; G0378; J1956; J2405; J2470